=== PATIENT | female | born 1995 | race Caucasian/White ===

== ENCOUNTER 2017-11-29 01:39 | Emergency (ER) | payer BC ==
[~2017-11-29] VITALS: Ht 167.6 cm; Wt 88.5 kg
[~2017-11-29 01:39] MED LIST: AMOXICILLIN500 MG PO; AMOXIL500 MG PO; BACTRIM DS 8001 TA1 PO; BENADRYL25 M1 PO; MACROBID100 M1 PO; MOTRIN400 MG PO; MOTRIN600 MG PO; NKHM; PREDNICOT20 MG PO; PREVACID30 M1 PO; SUDAFED60 MG PO; VOLTAREN50 M1 PO; ZANTAC 150150 MG PO
[2017-11-29 02:06] LABS: BILIRUBIN NEGATIVE (NEGATIVE); BLOOD NEGATIVE (NEGATIVE); CLARITY CLEAR (CLEAR); COLOR YELLOW (YELLOW); GLUCOSE NEGATIVE (NEGATIVE); KETONE NEGATIVE (NEGATIVE); LEUKO ESTERASE NEGATIVE (NEGATIVE); NITRITE NEGATIVE (NEGATIVE); UROBILINOGEN 0.2 E.U./dl (0.2-1.0)
[2017-11-29 02:07] LABS: BASO # 0.1 10*3/uL (0.0-0.1); BASO % 0.6 % (0.0-1.0); EOS # 0.1 10*3/uL (0.0-0.4); HEMATOCRIT 41.3 % (37.0-47.0); LYMPH % 28.7 % (27.0-41.0); MEAN CELL VOLUME 88.2 fl (81.0-99.0); MEAN CORPUSCULAR HGB 29.9 pg (27.0-31.0); MEAN CORPUSCULAR HGB CONC 33.9 g/dl (33.0-37.0); MONO # 0.8 10*3/uL (0.1-1.0); MONO % 7.5 % (3.0-9.0); NEUT # 6.4 10*3/uL (2.3-7.9); PLATELET COUNT AUTOMATED 288 10*3/uL (130-400); RED BLOOD COUNT 4.68 10*6/uL (4.10-5.10); RED CELL DISTRI WIDTH 12.2 % (0-14.5); WHITE BLOOD COUNT 10.3 10*3/uL (4.8-10.8)
[2017-11-29 02:12] LABS: RBC 0-2 rbc/hpf (0-2); WBC 0-2 wbc/hpf (0-5)
[2017-11-29 02:22] LABS: ALKALINE PHOSPHATASE 49 U/L (45-117); BUN 23 mg/dl (7-24); CHLORIDE 103 mmol/L (98-107); CREATININE 0.72 mg/dL (0.55-1.02); LIPASE 126 U/L (73-393); POTASSIUM 3.6 mmol/L (3.5-5.1); SGOT/AST 13 IU/L (3-35); SGPT/ALT 23 U/L (12-78); SODIUM 138 mmol/L (136-145); TOTAL PROTEIN 7.6 gm/dL (6.4-8.2)
[2017-11-29 02:26] LABS: BETA-HCG, QUANT < 1.0 mIU/mL (1-3)
== END 2017-11-29 02:52 | disposition home or self-care (01) ==
LOC: ED 01:39
PROVIDERS: Student in an Organized Health Care Education/Training Program
DX: R10.9 Unspecified abdominal pain (principal)

== ENCOUNTER 2018-01-01 23:51 | Emergency (ER) | payer BC ==
[~2018-01-01] VITALS: Ht 167.6 cm; Wt 88.0 kg
[2018-01-02] MEDS ORDERED: PNV PRENATAL P1 EACH PO
[2018-01-02 01:08] LABS: BILIRUBIN NEGATIVE (NEGATIVE); BLOOD 2+ (NEGATIVE); CLARITY CLEAR (CLEAR); COLOR YELLOW (YELLOW); GLUCOSE NEGATIVE (NEGATIVE); KETONE NEGATIVE (NEGATIVE); LEUKO ESTERASE NEGATIVE (NEGATIVE); NITRITE NEGATIVE (NEGATIVE); UROBILINOGEN 0.2 E.U./dl (0.2-1.0)
[2018-01-02 01:41] LABS: EPITHELIAL CELLS 25-30
[2018-01-02 01:46] LABS: WBC 0-2 wbc/hpf (0-5)
== END 2018-01-02 02:08 | disposition home or self-care (01) ==
LOC: ED 23:51
PROVIDERS: Student in an Organized Health Care Education/Training Program
DX: O26.851 Spotting complicating pregnancy, first trimester (principal); Z79.899 Other long term (current) drug therapy; Z3A.08 8 weeks gestation of pregnancy

== ENCOUNTER 2018-01-15 11:54 | Emergency (ER) | payer BC ==
[~2018-01-15] VITALS: Ht 167.6 cm; Wt 83.5 kg
[~2018-01-15 11:54] MED LIST changes: +PNV PRENATAL P1 EACH PO
[2018-01-15 12:51] LABS: BILIRUBIN NEGATIVE (NEGATIVE); BLOOD NEGATIVE (NEGATIVE); CLARITY TURBID (CLEAR); COLOR YELLOW (YELLOW); GLUCOSE NEGATIVE (NEGATIVE); KETONE TRACE (NEGATIVE); LEUKO ESTERASE NEGATIVE (NEGATIVE); NITRITE NEGATIVE (NEGATIVE); SPECIFIC GRAVITY 1.015 (1.005-1.030); UROBILINOGEN 0.2 E.U./dl (0.2-1.0)
[2018-01-15 13:07] LABS: BACTERIA 2+
[2018-01-15 13:23] LABS: BASO % 0.2 % (0.0-1.0); EOS % 0.2 % (1.0-4.0); HEMATOCRIT 45.3 % (37.0-47.0); LYMPH # 0.9 10*3/uL (1.3-4.4); LYMPH % 10.5 % (27.0-41.0); MEAN CELL VOLUME 91.1 fl (81.0-99.0); MEAN CORPUSCULAR HGB 30.2 pg (27.0-31.0); MEAN CORPUSCULAR HGB CONC 33.1 g/dl (33.0-37.0); MEAN PLATELET VOLUME 9.9 fl (9.6-12.3); MONO # 0.6 10*3/uL (0.1-1.0); MONO % 6.8 % (3.0-9.0); NEUT # 6.7 10*3/uL (2.3-7.9); NEUT % 82.1 % (47.0-73.0); PLATELET COUNT AUTOMATED 254 10*3/uL (130-400); RED BLOOD COUNT 4.97 10*6/uL (4.10-5.10); RED CELL DISTRI WIDTH 12.2 % (0-14.5); WHITE BLOOD COUNT 8.2 10*3/uL (4.8-10.8)
[2018-01-15 13:40] LABS: ALBUMIN 4.3 gm/dl (3.1-4.5); ALKALINE PHOSPHATASE 56 U/L (45-117); BUN 12 mg/dl (7-24); CHLORIDE 103 mmol/L (98-107); CREATININE 0.73 mg/dL (0.55-1.02); POTASSIUM 4.1 mmol/L (3.5-5.1); SGOT/AST 11 IU/L (3-35); SGPT/ALT 19 U/L (12-78); SODIUM 139 mmol/L (136-145); TOTAL PROTEIN 7.8 gm/dL (6.4-8.2)
[2018-01-15] MEDS ORDERED: ZOFRAN ODT4 MG SL (13:52)
== END 2018-01-15 14:02 | disposition home or self-care (01) ==
LOC: ED 11:54
PROVIDERS: Nurse Practitioner Family
DX: R11.2 Nausea with vomiting, unspecified (principal)

== ENCOUNTER → 2018-10-04 | Outpatient (CLI) | payer OTHER ==
[~2018-10-04] MED LIST changes: +ZOFRAN ODT4 MG SL
[2018-10-04 13:15] LABS: ALBUMIN 2.7 gm/dl (3.1-4.5); BILIRUBIN, DIRECT 0.3 mg/dL (0.0-0.2); TOTAL PROTEIN 7.3 gm/dL (6.4-8.2)
[2018-10-05 20:10] LABS: HCV LOG10 5.547 (.); HEPATITIS C QNT 352000 IU/mL (.)
== END | disposition home or self-care (01) ==
LOC: LAB 12:29
PROVIDERS: Internal Medicine Gastroenterology
DX: B18.2 Chronic viral hepatitis C (principal)

== ENCOUNTER 2018-11-19 15:06 | Emergency (ER) | payer OTHER ==
[~2018-11-19] VITALS: Ht 167.6 cm; Wt 84.8 kg
== END 2018-11-19 18:23 | disposition short-term general hospital (02) ==
LOC: ED 15:06
DX: O26.893 Other specified pregnancy related conditions, third trimester (principal); R10.30 Lower abdominal pain, unspecified; Z3A.37 37 weeks gestation of pregnancy

== ENCOUNTER 2019-06-26 21:47 | Emergency (ER) | payer SELFPAY ==
[~2019-06-26] VITALS: Wt 56.7 kg
[2019-06-26 22:29] LABS: BILIRUBIN NEGATIVE (NEGATIVE); BLOOD NEGATIVE (NEGATIVE); CLARITY SL CLOUDY (CLEAR); COLOR YELLOW (YELLOW); GLUCOSE NEGATIVE (NEGATIVE); KETONE NEGATIVE (NEGATIVE); LEUKO ESTERASE NEGATIVE (NEGATIVE); NITRITE NEGATIVE (NEGATIVE); SPECIFIC GRAVITY 1.025 (1.005-1.030); UROBILINOGEN 0.2 E.U./dl (0.2-1.0)
[2019-06-26 22:38] LABS: BACTERIA 1+; MUCOUS TRACE; RBC 0-2 rbc/hpf (0-2)
[2019-06-26] MEDS ORDERED: MACROBID100 M1 PO (23:10)
== END 2019-06-26 23:54 | disposition home or self-care (01) ==
LOC: ED 21:47
PROVIDERS: Physician Assistant
DX: R30.0 Dysuria (principal); R35.0 Frequency of micturition; M54.5 Low back pain; F17.200 Nicotine dependence, unspecified, uncomplicated; Z87.440 Personal history of urinary (tract) infections

== ENCOUNTER 2019-09-17 21:54 | Emergency (ER) | payer SELFPAY ==
[~2019-09-17] VITALS: Ht 170.1 cm; Wt 68.0 kg
== END 2019-09-18 00:12 | disposition home or self-care (01) ==
LOC: ED 21:54
DX: T40.1X1A Poisoning by heroin, accidental (unintentional), initial encounter (principal); K21.9 Gastro-esophageal reflux disease without esophagitis; Y92.89 Other specified places as the place of occurrence of the external cause

== ENCOUNTER 2020-12-12 18:40 | Emergency (ER) | payer OTHER ==
[~2020-12-12] VITALS: Ht 167.6 cm; Wt 83.9 kg
[2020-12-12 19:23] LABS: BASO % 0.4 % (0.0-1.0); EOS # 0.2 10*3/uL (0.0-0.4); EOS % 4.2 % (1.0-4.0); HEMATOCRIT 39.6 % (37.0-47.0); LYMPH # 2.1 10*3/uL (1.3-4.4); LYMPH % 41.8 % (27.0-41.0); MEAN CELL VOLUME 87.2 fl (81.0-99.0); MEAN CORPUSCULAR HGB 27.5 pg (27.0-31.0); MEAN CORPUSCULAR HGB CONC 31.6 g/dl (33.0-37.0); MEAN PLATELET VOLUME 9.5 fl (9.6-12.3); MONO # 0.5 10*3/uL (0.1-1.0); MONO % 10.2 % (3.0-9.0); NEUT # 2.2 10*3/uL (2.3-7.9); NEUT % 43.4 % (47.0-73.0); PLATELET COUNT AUTOMATED 203 10*3/uL (130-400); RED BLOOD COUNT 4.54 10*6/uL (4.10-5.10); RED CELL DISTRI WIDTH 13.2 % (0-14.5)
[2020-12-12 19:30] LABS: BILIRUBIN Negative (Negative); BLOOD 2+ (Negative); CLARITY Cloudy (Clear); COLOR Dark Yellow (Yellow); GLUCOSE Negative (Negative); KETONE Negative (Negative); LEUKO ESTERASE 3+ (Negative); NITRITE Positive (Negative); PH 5.5 (4.5-8.0)
[2020-12-12 19:38] LABS: ALBUMIN 3.8 gm/dl (3.1-4.5); ALKALINE PHOSPHATASE 59 U/L (45-117); BUN 18 mg/dl (7-24); CHLORIDE 106 mmol/L (98-107); CREATININE 0.74 mg/dL (0.55-1.02); POTASSIUM 4.4 mmol/L (3.5-5.1); SGOT/AST 25 IU/L (3-35); SGPT/ALT 38 U/L (12-78); SODIUM 139 mmol/L (136-145); TOTAL PROTEIN 7.6 gm/dL (6.4-8.2)
[2020-12-12 19:53] LABS: RBC 16-20 rbc/hpf (0-2); WBC 21-30 wbc/hpf (0-5)
[2020-12-12] MEDS ORDERED: PYRIDIUM200 M1 PO (20:02)
[2020-12-12] MEDS ORDERED: CEFUROXIME AXE500 MG PO (20:02)
== END 2020-12-12 20:30 | disposition home or self-care (01) ==
LOC: ED 18:40
PROVIDERS: Nurse Practitioner Family
DX: N39.0 Urinary tract infection, site not specified (principal)

== ENCOUNTER 2022-08-10 18:21 | Emergency (ER) | payer OTHER ==
[~2022-08-10] VITALS: Ht 167.6 cm; Wt 89.4 kg
[~2022-08-10 18:21] MED LIST changes: +CEFUROXIME AXE500 MG PO; +PYRIDIUM200 M1 PO
[2022-08-10 18:56] LABS: HEMATOCRIT 37.9 % (37.0-47.0); MEAN CELL VOLUME 83.7 fl (81.0-99.0); MEAN CORPUSCULAR HGB 27.8 pg (27.0-31.0); MEAN CORPUSCULAR HGB CONC 33.2 g/dl (33.0-37.0); PLATELET COUNT AUTOMATED 102 10*3/uL (130-400); RED BLOOD COUNT 4.53 10*6/uL (4.10-5.10); RED CELL DISTRI WIDTH 13.2 % (0-14.5); WHITE BLOOD COUNT 22.4 10*3/uL (4.8-10.8)
[2022-08-10 19:09] LABS: BILIRUBIN 1+ (Negative); BLOOD 3+ (Negative); CLARITY Turbid (Clear); COLOR Red (Yellow); GLUCOSE Negative (Negative); KETONE Negative (Negative); LEUKO ESTERASE 2+ (Negative); NITRITE Positive (Negative); SPECIFIC GRAVITY >= 1.030 (1.001-1.030)
[2022-08-10 19:12] LABS: ALKALINE PHOSPHATASE 68 U/L (45-117); BUN 18 mg/dl (7-24); CHLORIDE 104 mmol/L (98-107); CREATININE 0.62 mg/dL (0.55-1.02); LIPASE 79 U/L (73-393); POTASSIUM 3.4 mmol/L (3.5-5.1); SGOT/AST 27 IU/L (3-35); SGPT/ALT 41 U/L (12-78); SODIUM 135 mmol/L (136-145); TOTAL PROTEIN 7.5 gm/dL (6.4-8.2)
[2022-08-10 19:13] LABS: MANUAL DIFF REFLEX YES
[2022-08-10 19:15] LABS: BACTERIA 2+; RBC TNTC rbc/hpf (0-2); WBC 21-30 wbc/hpf (0-5)
[2022-08-10 19:25] LABS: ATYPICAL LYMPHS 1 % (0-0); TOTAL CELLS COUNTED 100 #CELLS
[2022-08-10 19:26] LABS: PLATELET SUFFICIENCY LOW (NORMAL)
[2022-08-10 20:37] LABS: URINE AMPHETAMINES < 1000 (1000ng/ml); URINE BARBITURATES < 200 (200ng/ml); URINE BENZODIAZEPINES < 200 (200ng/ml); URINE CANNABINOIDS (THC) < 50 (50ng/ml); URINE COCAINE < 300 (300ng/ml); URINE METHADONE < 300 (300ng/ml); URINE OPIATES < 300 (300ng/ml); URINE PHENCYCLIDINE < 25 (25ng/ml)
== END 2022-08-10 22:03 | disposition short-term general hospital (02) ==
LOC: ED 18:21
PROVIDERS: Physician Assistant
DX: O98.811 Other maternal infectious and parasitic diseases complicating pregnancy, first trimester (principal); A41.9 Sepsis, unspecified organism; O23.41 Unspecified infection of urinary tract in pregnancy, first trimester; N39.0 Urinary tract infection, site not specified; O20.9 Hemorrhage in early pregnancy, unspecified; Z3A.01 Less than 8 weeks gestation of pregnancy

== ENCOUNTER 2022-08-25 13:03 | Emergency (ER) | payer OTHER ==
[~2022-08-25] VITALS: Ht 167.6 cm; Wt 94.3 kg
[2022-08-25 14:47] LABS: BILIRUBIN Negative (Negative); BLOOD Negative (Negative); CLARITY Clear (Clear); COLOR Yellow (Yellow); GLUCOSE Negative (Negative); KETONE Trace (Negative); LEUKO ESTERASE Negative (Negative); NITRITE Negative (Negative); PH 6.5 (4.5-8.0); SPECIFIC GRAVITY >= 1.030 (1.001-1.030)
[2022-08-25 14:56] LABS: BACTERIA TRACE; EPITHELIAL CELLS 0-2; HYALINE CAST 0-2; MUCOUS 1+; WBC 0-2 wbc/hpf (0-5)
[2022-08-25] MEDS ORDERED: PREDNISONE50 MG PO (16:20)
== END 2022-08-25 16:23 | disposition home or self-care (01) ==
LOC: ED 13:03
PROVIDERS: Nurse Practitioner Family
DX: M54.32 Sciatica, left side (principal)

== ENCOUNTER 2023-01-22 14:09 | Emergency (ER) | payer MEDICAID ==
[~2023-01-22] VITALS: Ht 167.6 cm; Wt 99.3 kg
[~2023-01-22 14:09] MED LIST changes: +PREDNISONE50 MG PO
[2023-01-22] MEDS ORDERED: POLYMYXIN B/TRI10 M1 OPH (15:05)
== END 2023-01-22 15:47 | disposition home or self-care (01) ==
LOC: ED 14:09
DX: H10.33 Unspecified acute conjunctivitis, bilateral (principal); K21.9 Gastro-esophageal reflux disease without esophagitis; F11.10 Opioid abuse, uncomplicated

== ENCOUNTER 2024-04-26 09:59 | Emergency (ER) | payer MEDICAID ==
[~2024-04-26] VITALS: Ht 167.6 cm; Wt 83.5 kg
[~2024-04-26 09:59] MED LIST changes: +POLYMYXIN B/TRI10 M1 OPH
[2024-04-26] MEDS ORDERED: CLARITIN10 MG PO (10:50)
[2024-04-26] MEDS ORDERED: PREDNISONE10 MG PO (10:50)
== END 2024-04-26 10:53 | disposition home or self-care (01) ==
LOC: ED 09:59
DX: L23.7 Allergic contact dermatitis due to plants, except food (principal); K21.9 Gastro-esophageal reflux disease without esophagitis; Z87.891 Personal history of nicotine dependence

== ENCOUNTER 2025-07-09 14:57 | Emergency (ER) | payer OTHER ==
[~2025-07-09] VITALS: Ht 167.6 cm; Wt 88.5 kg
[~2025-07-09 14:57] MED LIST changes: +CLARITIN10 MG PO; +PREDNISONE10 MG PO
[2025-07-09] MEDS ORDERED: BUPRENORPHINE-1 EAC2 SL (15:12)
[2025-07-09] MEDS ORDERED: SODIUM CHLORIDE 0.9% 1,000 ML IV ONE (15:35)
[2025-07-09 15:44] LABS: BASO # 0.0 10*3/uL (0.0-0.1); BASO % 0.5 % (0.0-1.0); EOS # 0.2 10*3/uL (0.0-0.4); EOS % 2.9 % (1.0-4.0); MEAN CELL VOLUME 90.7 fl (81.0-99.0); MEAN CORPUSCULAR HGB 29.4 pg (27.0-31.0); MEAN PLATELET VOLUME 10.3 fl (9.6-12.3); MONO # 0.7 10*3/uL (0.1-1.0); MONO % 11.1 % (3.0-9.0); NEUT # 3.8 10*3/uL (2.3-7.9); NEUT % 64.7 % (47.0-73.0); NUCLEATED RED BLOOD CELL 0.0 % (0.0-0.0); NUCLEATED RED BLOOD CELL 0.0 10*3/uL (0.0-0.0); PLATELET COUNT AUTOMATED 149 10*3/uL (130-400); RED CELL DISTRI WIDTH 12.7 % (0-14.5)
[2025-07-09 15:48] LABS: BILIRUBIN Negative (Negative); BLOOD Negative (Negative); CLARITY Clear (Clear); COLOR Yellow (Yellow); KETONE Trace (Negative); LEUKO ESTERASE 1+ (Negative); NITRITE Negative (Negative); PH 5.5 (4.5-8.0); SPECIFIC GRAVITY 1.020 (1.001-1.030); UROBILINOGEN 1.0 E.U./dl (0.0-1.0)
[2025-07-09 15:57] LABS: BACTERIA 1+; EPITHELIAL CELLS 21-30; MUCOUS 3+; RBC 0-2 rbc/hpf (0-2)
[2025-07-09 16:15] LABS: BUN 7 mg/dl (9-23); SGPT/ALT 10 U/L (5-49)
[2025-07-09] MEDS ORDERED: AMOX-CLAV 875-1 EACH PO (17:09)
== END 2025-07-09 17:18 | disposition home or self-care (01) ==
LOC: ED 14:57
PROVIDERS: Emergency Medicine
DX: O23.43 Unspecified infection of urinary tract in pregnancy, third trimester (principal); N39.0 Urinary tract infection, site not specified; O26.893 Other specified pregnancy related conditions, third trimester; R42 Dizziness and giddiness; Z79.899 Other long term (current) drug therapy; Z3A.28 28 weeks gestation of pregnancy